=== PATIENT | male | born 1995 | race African-American/Black ===

== ENCOUNTER 2021-03-08 11:27 | Emergency (ER) | payer OTHER, SELFPAY ==
[2021-03-08 11:32] VITALS: BP 142/94; PULSE 85; RESP 16; TEMP 36.6; O2SAT 100
[2021-03-08 11:42] LABS: Glucose Point of Care 170 mg/dl (65-105)
[2021-03-08 13:08] LABS: Glucose Point of Care 202 mg/dl (65-105)
--- NOTE | 2021-03-08 13:08 | PC.NURSE ---
pt states he is feeling better after eating lunch. blood sugar 202. iv removed. dressing applied - gait steady as he walked out
== END 2021-03-08 13:10 | disposition left against medical advice (07) ==
PROVIDERS: Emergency Provider Emergency Medicine
DX: E10.649 Type 1 diabetes mellitus with hypoglycemia without coma (principal)
CPT/HCPCS: 82948; 99199